=== PATIENT | male | born 1960 | race Caucasian/White ===

== ENCOUNTER → 2017-03-16 | Outpatient (CLI) | payer MEDICAID ==
[~2017-03-16] MED LIST: ACE500 PO; ALPR-429 PO; AMLO-99 PO; AMO500 PO; CETI-459 PO; CLA500 PO; CLON-303 *; CLON-327 PO; CLON-329 PO; CLON-392 PO; CLON0.3T35 PO; CYCL10TA29 PO; DIA5 PO; DILCD120 PO; DILT60CA5 PO; ESCI10TA8 PO; ESCI20TA8 PO; FLU45SYR25 IM ONLY; HYDR-2966 PO; HYDR-385 PO; IBU600 PO; IBUP600T22 PO; LEDI1TAB PO; LISI-353 PO; LISI-355 PO; LISI20TA29 PO; LOR5/325 PO; LOSA-54 PO; LOSA50TA72 PO; MELO-207 PO; METH-278 PO; METH4TAB66 PO; METO-253 PO; METO-259 PO; METO25TA93 PO; OLME1TAB51 PO; OMEP-153 PO; OXYC-869 PO; OXYC5TAB38 PO; PAN20 PO; PANT40TA65 PO; PHEN120S16 PO; POLY17PO25 PO; POTA-28 PO; PRE20 PO; VALS1TAB4 PO; [UNRECOGNIZED DRUG - CODE] RC
[2017-03-16 09:55] LABS: PLATELET COUNT, AUTOMATED 226 K/uL (150-450)
[2017-03-16 10:48] LABS: LDL CHOLESTEROL 77 mg/dl
== END ==
LOC: LAB 09:12
PROVIDERS: ATTEND Internal Medicine
DX: M54.6 Pain in thoracic spine (principal); M25.551 Pain in right hip; F41.9 Anxiety disorder, unspecified; I10 Essential (primary) hypertension; K64.9 Unspecified hemorrhoids
CPT/HCPCS: 36415; 81001; 82040; 82247; 82310; 82374; 82435; 82465; 82565; 82947; 83718; 84075; 84132; 84153; 84155; 84295; 84450; 84460; 84478; 84520; 85025

== ENCOUNTER 2017-08-09 13:25 | Emergency (ER) | payer MEDICAID ==
--- NOTE | 2017-08-09 13:27 | ER Report ---
History and Physical Time Seen By MD: 13:26 HPI/ROS CHIEF COMPLAINT: Fall, hit head HISTORY OF PRESENT ILLNESS: Patient is a 56 her old male who slipped on some water on the kitchen floor he hit the right side of his head against a gas adjuster on Wednesday evening. He denies loss of consciousness but patient has felt nauseous and vomited a few times since of the injury. Patient denies double vision or blurry vision. He denies any neck pain. Denies any other injuries REVIEW OF SYSTEMS: Respiratory: No cough, no dyspnea. Cardiovascular: No chest pain, no palpitations. Gastrointestinal: Nausea and vomiting Musculoskeletal: No back pain. Allergies: Coded Allergies: BEE STINGS (Verified Allergy, Intermediate, FACIAL SWELLING, 08/09/17) Penicillins (Verified Allergy, Intermediate, SWELLING, 08/09/17) Home Meds Active Scripts Hydrocortisone (PROCTOCORT) 28.35 Gm Cream..g., 28.35 GM RC BID, #30 CM 1 Refill Prov:PRAVIN MARQUES MD 03/15/17 Polyethylene Glycol 3350 (MIRALAX) 17 Gm Powd.pack, 17 GM PO QDAY Y for constipation, #30 PKT 5 Refills Prov:PRAVIN MARQUES MD 03/15/17 Escitalopram Oxalate (ESCITALOPRAM OXALATE) 20 Mg Tablet, 20 MG PO QDAY, #90 TAB 1 Refill Prov:PRAVIN MARQUES MD 03/15/17 Amlodipine Besylate (AMLODIPINE BESYLATE) 10 Mg Tablet, 1 TAB PO QDAY, #90 TAB 3 Refills Prov:PRAVIN MARQUES MD 03/15/17 Clonidine Hcl (CLONIDINE HCL) 0.3 Mg Tablet, 0.3 MG PO BID, #180 TAB 3 Refills Prov:PRAVIN MARQUES MD 03/15/17 Metoprolol Tartrate (METOPROLOL TARTRATE) 50 Mg Tab, 1 TAB PO QDAY, #90 TAB 3 Refills Prov:PRAVIN MARQUES MD 03/15/17 Losartan/Hydrochlorothiazide (LOSARTAN-HCTZ 100-25 MG TAB) 1 Each Tablet, 1 EACH PO QDAY, #90 TAB 3 Refills Prov:PRAVIN MARQUES MD 03/15/17 Cyclobenzaprine Hcl (CYCLOBENZAPRINE HCL) 10 Mg Tablet, 10 MG PO BID Y for BACK SPASM, #30 TAB 0 Refills Prov:PRAIVN MARQUES MD 02/18/17 Pantoprazole Sodium (PANTOPRAZOLE SODIUM) 40 Mg Tablet.dr, 40 MG PO QDAY, #30 TAB.SR 3 Refills Prov:PRAVIN MARQUES MD 09/29/16 Past Medical/Surgical History Past medical history for hypertension Hx Smoking: No Smoking Status: Former Smoker Exposure to Second Hand Smoke?: No Hx Substance Use Disorder: No Hx Alcohol Use: No Constitutional Vital Sign - Last 24 Hours 08/09/17 13:31 Temp 97.7 Pulse 57 Resp 16 B/P (MAP) 169/109 Pulse Ox 95 Physical Exam General Appearance: The patient is alert, has no immediate need for airway protection and no current signs of toxicity. Eyes: Pupils equal and round no injection. Photophobia Respiratory: Chest is non tender, lungs are clear to auscultation. Cardiac: regular rate and rhythm Gastrointestinal: Abdomen is soft and non tender, no masses, bowel sounds normal. Musculoskeletal: Neck: Neck is supple and non tender. Extremities have full range of motion and are non tender. Skin: No rashes or lesions. Medical Decision Making EKG/Imaging Imaging FACILITY: [facility] PATIENT NAME: Helder Gould : 1960 MR: [id number] V: [id number] EXAM DATE: ORDERING PHYSICIAN: ELDER DIMAS TECHNOLOGIST: Location: [facility] [place] Patient: Helder Gould : 1960 Visit/Account:[id number] Date of Sevice: 08/09/2017 EXAMINATION: CT Head without intravenous contrast HISTORY: Trauma. TECHNIQUE: Axial images were obtained from the skull base to the vertex without intravenous contrast. Sagittal and coronal reformatted images are also submitted. One of the following dose optimization techniques was utilized in the performance of this exam: Automated exposure control; adjustment of the mA and/ or kV according to the patient's size; or use of an iterative reconstruction technique. Specific details can be referenced in the facility's radiology CT exam operational policy. COMPARISON: None. FINDINGS: Brain volume: Normal. Ventricles: Negative. Acute ischemic changes: None. Hemorrhage: None. Masses / edema: None. Coffman-white: Negative. White matter: Negative. Vessels: Negative. Extra-axial: Negative. Calvarium / skull base: Negative. Visualized sinuses / orbits: Mild mucosal thickening in the paranasal sinuses. IMPRESSION: 1. No acute intracranial abnormality. 2. Mild mucosal thickening in the paranasal sinuses. Report Dictated By: Antoine Hernandez MD at 08/09/2017 2:11 PM Report E-Signed By: Antoine Hernandez MD at 08/09/2017 2:15 PM [email or web address] ED Course/Re-evaluation ED Course 08/09/2017 2:20:04 pm plan at this time will be noncontrast CT of the head. We' ll give oral Zofran for nausea and oral ibuprofen for pain. Decision to Disposition Date: Aug 09, 2017 Decision to Disposition Time: 14:25 Depart Departure Latest Vital Signs Vital Signs Date Time Temp Pulse Resp B/P (MAP) Pulse Ox O2 Delivery O2 Flow Rate FiO2 08/09/17 13:31 97.7 57 16 169/109 95 Impression: Primary Impression: Concussion Condition: Improved Disposition: HOME OR SELF-CARE Referrals: PRAVIN MARQUES MD (PCP) 2 Days If symptoms persist New Scripts Ondansetron (ZOFRAN ODT) 4 Mg Tab.rapdis 4 MG PO Q8H Y for NAUSEA, #20 TAB.ELIDA 0 Refills Prov: ELDER DIMAS MD 08/09/17 Departure Forms: ER Transition Record, Medications Reconciliation, Off Work/ School Form, School or Work Release?: Work Number of days to be released: 3 Patient Portal Information Patient Instructions: Concussion (GEN) Problem Qualifiers Primary Impression: Concussion Encounter type: initial encounter Loss of consciousness presence/duration: without LOC Qualified Codes: S06.0X0A - Concussion without loss of consciousness, initial encounter ELDER DIMAS MD Aug 09, 2017 13:27
[2017-08-09] MEDS ORDERED: IBUPROFEN 600 MG TAB PO ONE (13:35)
[2017-08-09] MEDS ORDERED: ONDANSETRON 4 MG ODT TABDP SL ONE (13:35)
--- NOTE | 2017-08-09 14:20 | RADIOLOGY IMAGING REPORT ---
FACILITY: [facility] PATIENT NAME: Helder Gould : 1960 MR: [id number] V: [id number] EXAM DATE: ORDERING PHYSICIAN: ELDER DIMAS TECHNOLOGIST: Location: [facility] Patient: Helder Gould : 1960 Visit/Account:[id number] Date of Sevice: 08/09/2017 EXAMINATION: CT Head without intravenous contrast HISTORY: Trauma. TECHNIQUE: Axial images were obtained from the skull base to the vertex without intravenous contrast . Sagittal and coronal reformatted images are also submitted. One of the following dose optimization techniques was utilized in the performance of this exam: Autom ated exposure control; adjustment of the mA and/or kV according to the patient's size; or use of an i terative reconstruction technique. Specific details can be referenced in the facility's radiology C T exam operational policy. COMPARISON: None. FINDINGS: Brain volume: Normal. Ventricles: Negative. Acute ischemic changes: None. Hemorrhage: None. Masses / edema: None. Coffman-white: Negative. White matter: Negative. Vessels: Negative. Extra-axial: Negative. Calvarium / skull base: Negative. Visualized sinuses / orbits: Mild mucosal thickening in the paranasal sinuses. IMPRESSION: 1. No acute intracranial abnormality. 2. Mild mucosal thickening in the paranasal sinuses. Report Dictated By: Antoine Hernandez MD at 08/09/2017 2:11 PM Report E-Signed By: Antoine Hernandez MD at 08/09/2017 2:15 PM [email or web address]
[2017-08-09] MEDS ORDERED: ONDA4TAB PO (14:27)
[2017-08-09 14:46] VITALS: BP 138/90
== END 2017-08-09 14:47 | disposition home or self-care (01) ==
LOC: ER 14:22
DX: S06.0X0A Concussion without loss of consciousness, initial encounter (principal); W01.198A Fall on same level from slipping, tripping and stumbling with subsequent striking against other object, initial encounter
CPT/HCPCS: 70450; 99283; S0119

== ENCOUNTER → 2017-11-30 | Outpatient (CLI) | payer MEDICAID ==
[~2017-11-30] MED LIST changes: +ONDA4TAB PO
[2017-11-30 09:15] LABS: PLATELET COUNT, AUTOMATED 192 K/uL (150-450)
[2017-11-30 09:22] LABS: LDL CHOLESTEROL 80 mg/dl
== END ==
LOC: LAB 08:41
PROVIDERS: ATTEND Internal Medicine
DX: F41.9 Anxiety disorder, unspecified (principal); I12.9 Hypertensive chronic kidney disease with stage 1 through stage 4 chronic kidney disease, or unspecified chronic kidney disease; S39.92XA Unspecified injury of lower back, initial encounter; Z86.19 Personal history of other infectious and parasitic diseases; N18.3 Chronic kidney disease, stage 3 (moderate); I48.91 Unspecified atrial fibrillation; R79.9 Abnormal finding of blood chemistry, unspecified
CPT/HCPCS: 82040; 82247; 82310; 82374; 82435; 82465; 82565; 82947; 83036; 83718; 84075; 84132; 84155; 84295; 84443; 84450; 84460; 84478; 84520; 85025